=== PATIENT | female | born 1970 | race Caucasian/White ===

== ENCOUNTER 2018-12-13 10:17 | Inpatient (IN) | payer OTHER ==
[~2018-12-13] VITALS: Ht 157.5 cm; Wt 59.4 kg
[~2018-12-13 10:17] MED LIST: AMOXICILLIN 50500 MG PO; AUGMENTIN 500-1 EACH PO; CIPROFLOXACIN500 M1 PO; CYCLOBENZAPRINE5 MG PO; HYDROCODON-ACE1 EAC7 PO; HYDROCODONE-AP1 EAC6 PO; NAPROSYN500 MG PO; NOHOMEMEDICATIONS; NORCO 5-325 TA1 EAC1 PO; NORCO 5-325 TA1 EACH PO; PERCOCET 5-3251 EACH PO; PREDNISONE 10 M10 M1; TAMSULOSIN HCL0.4 MG PO; ULTRAVATE50 GM TP
[2018-12-13 10:28] VITALS: BP 120/59
[2018-12-13 10:39] LABS: URINE BILIRUBIN NEGATIVE (Negative); URINE BLOOD TRACE (Negative); URINE CLARITY CLEAR; URINE COLOR YELLOW; URINE GLUCOSE-RANDOM NEGATIVE (Negative); URINE KETONES NEGATIVE (Negative); URINE LEUKOCYTES-REFLEX 1+ (Negative); URINE PROTEIN NEGATIVE (Negative); URINE SPECIFIC GRAVITY 1.015 (1.005-1.030); URINE UROBILINOGEN 0.2 E.U./dl (0.2-1.0)
[2018-12-13 10:43] LABS: URINE NITRITE-REFLEX POSITIVE (Negative)
[2018-12-13 10:48] LABS: SQUAMOUS 0-3 Few /LPF (0-3)
[2018-12-13 10:49] LABS: BACTERIA-REFLEX >30 Many /HPF (None Seen); CASTS None Seen /LPF (None Seen); CRYSTALS None Seen /LPF (None Seen); MUCUS 0-3 Light strn/LPF (None Seen); URINE RBC 0-2 Rare /HPF (0-2); URINE WBC-REFLEX 6-15 Few /HPF (0-5)
[2018-12-13 10:58] LABS: ABSOLUTE LYMPHOCYTES 2.3 thou/uL (0.8-5.3); ABSOLUTE MONOCYTES 0.3 thou/uL (0.0-1.2); ABSOLUTE NEUTROPHILS 2.9 thou/uL (1.6-8.1); BASOPHILS 0.7 %; EOSINOPHILS 0.6 %; HEMOGLOBIN 13.5 gm/dL (12.0-15.0); LYMPHOCYTES 40.6 %; MCH 30.9 pg (26.0-34.0); MCHC 33.7 g/dL (28.0-37.0); MONOCYTES 5.9 %; MPV 7.3 fl. (7.2-11.1); NUCLEATED RBCS 0 /100WBC; PLATELET COUNT* 195 thou/uL (150-400); POLYS 52.2 %; RBC 4.35 mil/uL (4.20-5.00); RDW-CV 13.5 % (10.5-14.5); WBC 5.6 thou/uL (4.0-11.0)
[2018-12-13 11:18] LABS: ALBUMIN 3.6 g/dL (3.4-5.0); ALKALINE PHOSPHATASE 60 U/L (46-116); ANION GAP 8 mmol/L (7-16); BUN 12 mg/dL (7-18); CALCIUM 8.5 mg/dL (8.5-10.1); CHLORIDE 103 mmol/L (98-107); CO2 27 mmol/L (21-32); CREATININE 0.6 mg/dL (0.6-1.3); GLUCOSE 113 mg/dL (70-99); LIPASE 147 U/L (73-393); POTASSIUM 4.3 mmol/L (3.5-5.1); SGOT 20 U/L (15-37); SGPT 28 U/L (30-65); SODIUM 138 mmol/L (136-145); TOTAL BILIRUBIN 0.5 mg/dL (<0.1-1.0); TOTAL PROTEIN 7.1 g/dL (6.4-8.2); TROPONIN-I LEVEL <0.06 ng/mL (<0.06)
[2018-12-13 15:35] VITALS: BP 120/64
[2018-12-13 16:26] VITALS: BP 142/70
--- NOTE | 2018-12-13 16:47 | NUR ---
ASSESSMENT COMPLETE. PT ADMITTED WITH KIDNEY STONE AND UTI. UROLOGY CONSULTED AND WILL ASSESS PATIENT THIS EVENING. PT IS ON ROOM AIR, VSS. PT DENIES NEED FOR PAIN MEDICATION. UP AD EVELIN. PT REPORTS "I AM TALKING TO THE DR AND THEN IM GOING HOME, WE CAN MONITOR IT FROM HOME". DR SALAS WILL BE ROUNDING THIS EVENING. SEE ASSESSMENT AND VITALS FOR OTHER DETAILS. CALL LIGHT WITHIN REACH, WILL CONTINUE PLAN OF CARE
--- NOTE | 2018-12-13 17:51 | NUR ---
PT DECIDED TO STAY AND NOT LEAVE AMA. IV FLUIDS INFUSING AND PRN PAIN MEDICATION GIVEN. PT DENIES NAUSEA. NPO AFTER MIDNIGHT, KUB IN AM.
[2018-12-14 00:10] VITALS: BP 153/63
[2018-12-14 04:34] LABS: HEMOGLOBIN 12.3 gm/dL (12.0-15.0); MCHC 33.3 g/dL (28.0-37.0); MCV 93.1 fL (80.0-100.0); MPV 8.2 fl. (7.2-11.1); RBC 3.98 mil/uL (4.20-5.00); RDW-CV 13.5 % (10.5-14.5); WBC 5.3 thou/uL (4.0-11.0)
[2018-12-14 04:51] LABS: CALCIUM 8.3 mg/dL (8.5-10.1); CREATININE 0.6 mg/dL (0.6-1.3); POTASSIUM 4.5 mmol/L (3.5-5.1)
[2018-12-14 04:56] LABS: APTT 27.8 Seconds (25.0-31.3); PROTIME 10.5 Seconds (9.20-11.50)
--- NOTE | 2018-12-14 04:57 | NUR ---
PATIENT SLEPT WELL DURING THIS SHIFT. PT UP TO BATHROOM WITH STEADY GAIT. FLUIDS INFUSING PER DR ORDER. PT ON SCHEDULED ULTRAM AND HAS NOT ASKED FOR OTHER PAIN MEDS. URINE IS STRAINED; NO STONE RETRIEVED AT THIS TIME. PT NPO SINCE MIDNIGHT PER DR ORDER. FREQUENTLY USED ITEMS AND CALL LIGHT WITHIN REACH. SIDERAILS UPX2. WILL CONTINUE TO MONITOR.
[2018-12-14 08:00] VITALS: BP 153/65
[2018-12-14 09:35] VITALS: BP 153/65
[2018-12-14] MEDS ORDERED: CIPRO500 MG PO (09:51)
[2018-12-14] MEDS ORDERED: NORCO 5-325 TA1 EACH PO ×2 (09:51→16:21)
[2018-12-14] MEDS ORDERED: FLOMAX0.4 MG PO ×2 (09:52→16:21)
--- NOTE | 2018-12-14 11:56 | NUR ---
ATTEMPTED TO SEE PT, WAS IN SURGERY AND HAS PENDING DC ORDERS. LEFT [employer] PACKET WITH NURSE TO GIVE TO PT SHE IS UNINSURED
[2018-12-14 13:20] VITALS: BP 155/72
--- NOTE | 2018-12-14 13:24 | NUR ---
PT RETURNED FROM PACU AT THIS TIME. SEE DOCUMENTATION. FAMILY AT BEDSIDE. WILL CONTINUE TO MONITOR.
[2018-12-14 16:16] VITALS: BP 155/72
[2018-12-14] MEDS ORDERED: LEVSIN0.125 MG SUBLING (16:20)
[2018-12-14] MEDS ORDERED: KEFLEX500 M1 PO (16:23)
--- NOTE | 2018-12-14 16:55 | NUR ---
DISCHARGE NOTE - PT REQUESTING TO GO HOME. TOLERATING PO FLUIDS AND FOOD. TOLERATING PAIN. PT ABLE TO VOID X 3 SINCE SURGERY. PT AGAIN REQUESTING TO BE DISCHARGED. OK TO DISCHARGE PER 'S ORDERS. REVIEWED DISCHARGE INSTRUCTIONS. ALL BELONGINGS SENT WITH PT. IV REMOVED.
--- NOTE | 2018-12-15 14:46 | OP ---
[facility] [address] [place] [address] OPERATIVE REPORT Name: VON HINOJOSA Room: [address] IN M.R.#: [id number] Admission: 12/13/18 Attend Phys: Nell Curran MD Discharge: 12/14/18 Date of : 72 Report #: [id number] THIS REPORT FOR: //name// CC: Nell Gonzalez DATE OF SERVICE: 12/14/2018 POSTOPERATIVE DIAGNOSIS: Left flank pain and ureteral calculi. POSTOPERATIVE DIAGNOSIS: Left flank pain and ureteral calculi. PROCEDURES: Cystoscopy with left retrograde pyelogram, left ureteroscopy, laser lithotripsy, stone extraction and stent placement. SURGEON: Milton Noland M.D. ANESTHESIA: General. ESTIMATED BLOOD LOSS: None. DRAINS: A 6 x 26 left ureteral stent. SPECIMENS: Stone fragments. COMPLICATIONS: None. INDICATIONS: This is a 48-year-old female admitted with intractable flank pain and imaging findings consistent with 1-2 stones in the left proximal ureter. Alternatives for management have been discussed and she has elected to undergo cystoscopy, left retrograde pyelogram, left ureteroscopy with possible laser lithotripsy, stone extraction and stent placement. Risks of procedure were explained including, but not limited to bleeding; infection; anesthesia; cardiopulmonary and vascular events; injury to urethra, bladder, ureter; possible inability to access or bypass stone; possible need for further stone procedures; possible development of strictures and stent discomfort. We also discussed the need for timely followup regarding any stent left in place and the reasoning for that. Discussed implications of noncompliance from that standpoint. She voices clear understanding of all this and wants to proceed. DESCRIPTION OF PROCEDURE: The patient was on perioperative IV antibiotics. After induction of general anesthesia, she was positioned, prepped and draped in the lithotomy position. A time-out procedure was performed. Cystourethroscopy was performed. The urethra would not admit a 22-American sheath. This was dilated gently with obturators beginning at 17-American and progressing to 22-American, after which, cystourethroscopy was performed. [facility] [place] [address] OPERATIVE REPORT Name: ASHISHVON HAMLIN Room: [address] IN [facility].#: [id number] Admission: 12/13/18 Attend Phys: Nell Curran MD Discharge: 12/14/18 Date of : 72 Report #: [id number] bladder were examined systematically with 30 and 70-degree scopes and there were no lesions or stones visible. Ureteral orifices were orthotopic. No blood was seen from either. Fluoroscopic interrogation was consistent with 1-2 calculi in the region of the left proximal ureter. A 5-American ureteral catheter was used to perform a retrograde pyelogram, which revealed a normal course and caliber of the ureter until filling defects corresponding to the location of the calcifications were noted. A couple artifactual filling defects were noted to be air bubbles as well. A sensor wire was advanced up the left ureter and into the renal pelvis. The scope was removed leaving the wire in place. A semi-rigid ureteroscope was advanced alongside the wire and into the ureter. This passed easily into the ureter, but did not advance with gentle manipulation to the level of the stone. The scope was used to pass a second sensor wire, with visual and fluoroscopic guidance into the renal pelvis. The scope was withdrawn leaving both wires in place. Attempts to pass the obturator on a 06/18 x 28 cm ureteral access sheath were unsuccessful, meeting some resistance in the distal ureter. However, passage of the flexible ureteroscope over the second wire went easily to the level of the stone. The wire was removed, leaving the scope in place with a safety wire alongside. The stone in the proximal ureter was accessed with a 272-micron holmium laser fiber and laser lithotripsy was begun. The stone broke up nicely into tiny fragments and a second stone became apparent. The manipulation resulted in the second stone migrating into the renal pelvis. Scope was advanced into the renal pelvis and the calices were examined sequentially. That stone, but no other stones were encountered. The stone was engaged with a 272-micron holmium laser fiber and broken into tiny fragments. Care was taken to avoid injury to the surrounding tissues and the wire. The stone broke up very nicely at 6.4 penny into tiny fragments. The largest of these was extracted with a 0 tip basket and sent for analysis. The remaining fragments were too small to entrap with a basket and thus appeared passable. The ureter was examined while extracting the stone and aside from the edema in the proximal ureter, there were no other ureteral abnormalities or remaining ureteral stone fragments. The wire was loaded on the cystoscope and was used for placement of a 6 x 26 left ureteral stent, with good position confirmed in the renal pelvis fluoroscopically and in the bladder visually. Drainage from the stent was clear. Lidocaine jelly was given per urethra. The bladder was emptied prior to this and the scope removed. The patient tolerated the procedure well and was taken to the recovery room in stable condition. The plan will be to obtain a repeat radiograph in approximately 1-2 weeks and then remove her stent if it does not show any significant residual fragments. <ELECTRONICALLY SIGNED> By: Milton Noland MD 12/15/18 [id number] Noland MD /[email or web address]
== END 2018-12-14 16:55 | disposition home or self-care (01) | DRG 661 ==
LOC: M.ERS 10:17 → M.3W 13:16 → M.TBA-ER 13:16 → M.3W 16:22
PROVIDERS: Physician Assistant; Urology; ADMIT Internal Medicine
PROC: 0T778DZ Dilation of Left Ureter with Intraluminal Device, Via Natural or Artificial Opening Endoscopic (ICD-10-PCS; principal; 2018-12-14)
PROC: BT1F1ZZ Fluoroscopy of Left Kidney, Ureter and Bladder using Low Osmolar Contrast (ICD-10-PCS; principal; 2018-12-14)
PROC: 0TC78ZZ Extirpation of Matter from Left Ureter, Via Natural or Artificial Opening Endoscopic (ICD-10-PCS; principal; 2018-12-14)
DX: N13.6 Pyonephrosis (principal); J45.909 Unspecified asthma, uncomplicated; F17.210 Nicotine dependence, cigarettes, uncomplicated; Z87.442 Personal history of urinary calculi; Z79.899 Other long term (current) drug therapy

== ENCOUNTER 2020-03-03 09:01 | Emergency (ER) | payer OTHER ==
[~2020-03-03] VITALS: Ht 157.5 cm; Wt 61.2 kg
[~2020-03-03 09:01] MED LIST changes: +CIPRO500 MG PO; +FLOMAX0.4 MG PO; +KEFLEX500 M1 PO; +LEVSIN0.125 MG SUBLING
[2020-03-03 09:29] LABS: URINE BILIRUBIN NEGATIVE (Negative); URINE BLOOD 2+ (Negative); URINE CLARITY CLEAR; URINE COLOR YELLOW; URINE GLUCOSE-RANDOM NEGATIVE (Negative); URINE KETONES NEGATIVE (Negative); URINE NITRITE-REFLEX NEGATIVE (Negative); URINE PROTEIN 1+ (Negative); URINE SPECIFIC GRAVITY 1.025 (1.005-1.030); URINE UROBILINOGEN 0.2 E.U./dl (0.2-1.0)
[2020-03-03 09:32] LABS: URINE LEUKOCYTES-REFLEX 2+ (Negative)
[2020-03-03 09:39] LABS: BACTERIA-REFLEX 1-9 Few /HPF (None Seen); CASTS None Seen /LPF (None Seen); CRYSTALS None Seen /LPF (None Seen); MUCUS 0-3 Light strn/LPF (None Seen); SQUAMOUS 0-3 Few /LPF (0-3); URINE RBC 3-10 Few /HPF (0-2)
[2020-03-03 09:49] LABS: ABSOLUTE LYMPHOCYTES 2.2 thou/uL (0.8-5.3); BASOPHILS 0.4 %; EOSINOPHILS 0.1 %; HEMATOCRIT 40.7 % (37.0-47.0); HEMOGLOBIN 14.1 gm/dL (12.0-15.0); LYMPHOCYTES 21.7 %; MCH 31.9 pg (26.0-34.0); MCHC 34.5 g/dL (28.0-37.0); MCV 92.3 fL (80.0-100.0); MONOCYTES 10.1 %; MPV 7.5 fl. (7.2-11.1); NUCLEATED RBCS 0 /100WBC; PLATELET COUNT* 199 thou/uL (150-400); POLYS 67.7 %; RBC 4.41 mil/uL (4.20-5.00); WBC 10.3 thou/uL (4.0-11.0)
[2020-03-03 09:56] LABS: CALCIUM 8.3 mg/dL (8.5-10.1); CREATININE 0.8 mg/dL (0.6-1.3); POTASSIUM 3.8 mmol/L (3.5-5.1)
[2020-03-03 10:01] LABS: ALBUMIN 3.7 g/dL (3.4-5.0); TOTAL BILIRUBIN 0.6 mg/dL (<0.1-1.0); TOTAL PROTEIN 7.4 g/dL (6.4-8.2)
[2020-03-03] MEDS ORDERED: ZOFRAN ODT4 MG PO (11:42)
[2020-03-03] MEDS ORDERED: FLOMAX0.4 MG PO (11:42)
[2020-03-03] MEDS ORDERED: HYDROCODON-ACE1 EAC7 PO (11:42)
[2020-03-03] MEDS ORDERED: CYCLOBENZAPRINE5 MG PO (11:42)
[2020-03-03 11:52] VITALS: BP 154/79
== END 2020-03-03 11:53 | disposition home or self-care (01) ==
LOC: M.ERS 09:01
PROVIDERS: Personal Emergency Response Attendant
DX: N12 Tubulo-interstitial nephritis, not specified as acute or chronic (principal); N23 Unspecified renal colic; F17.210 Nicotine dependence, cigarettes, uncomplicated; J45.909 Unspecified asthma, uncomplicated